=== PATIENT | female | born 1975 | race Hispanic/Latino ===

== ENCOUNTER 2020-10-18 12:54 | Emergency (ER) ==
[2020-10-18] MEDS ORDERED: Acetaminophen 500 MG TAB ONE (13:48)
== END 2020-10-18 14:00 | disposition home or self-care (01) ==
LOC: ERS 12:54
DX: U07.1 COVID-19 (principal); J12.89 Other viral pneumonia; Z79.82 Long term (current) use of aspirin
CPT/HCPCS: 71045; 93005

== ENCOUNTER 2020-10-18 23:50 | Emergency (ER) | payer SELFPAY ==
[2020-10-19] MEDS ORDERED: Ibuprofen 200 MG TAB ONE (00:33)
== END 2020-10-19 02:07 | disposition home or self-care (01) ==
LOC: ERS 23:50
DX: U07.1 COVID-19 (principal)
CPT/HCPCS: 71045

== ENCOUNTER 2021-04-02 15:11 | Outpatient (CLI) | payer OTHER | END 2021-04-02 15:12 | disposition home or self-care (01) | LOC: BICMRI 15:11 → EDSEX 15:11 → BICMRI 15:12 | PROVIDERS: ATTEND Family Medicine | DX: S83.422D Sprain of lateral collateral ligament of left knee, subsequent encounter (principal); S89.92XD Unspecified injury of left lower leg, subsequent encounter; M23.242 Derangement of anterior horn of lateral meniscus due to old tear or injury, left knee; M23.92 Unspecified internal derangement of left knee; M25.462 Effusion, left knee ==

== ENCOUNTER 2021-07-26 11:28 | Outpatient (CLI) | payer SELFPAY, OTHER ==
[2021-07-26 12:44] LABS: #Basophils 0.1 10x3/uL (0.0-0.2); #Eosinphils 0.6 10x3/uL (0.0-0.5); #Monocytes 0.7 10x3/uL (0.0-1.1); #Neutrophils 3.6 10x3/uL (1.5-8.4); %Basophils 1.1 % (0.0-2.0); %Lymphocytes 29.7 % (18.0-47.0); %Monocytes 9.2 % (0.0-10.0); %Neutrophils 51.4 % (40.0-75.0); Hemoglobin 15.8 g/dL (13.5-17.5); Mean Corpuscular HGB CONC 33.9 g/dL (32.0-36.0); Mean Corpuscular Hemoglobin 30.3 pg (27.0-33.0); Mean Corpuscular Volume 89.3 fl (81.2-95.1); Mean Platelet Volume 10.5 fl (7.4-10.4); Platelet Count 249 10x3/uL (150-450); RBC Distribution Width 13.2 % (11.5-14.5); Red Blood Cell (RBC) Count 5.22 10x6/uL (4.32-5.72)
[2021-07-27 00:08] LABS: SARS-CoV-2 PCR by NAA Not Detected (NotDetected)
== END 2021-07-26 11:29 | disposition home or self-care (01) ==
LOC: LABBT 11:28
PROVIDERS: ATTEND Orthopaedic Surgery
DX: Z01.812 Encounter for preprocedural laboratory examination (principal); S83.512A Sprain of anterior cruciate ligament of left knee, initial encounter; S83.282A Other tear of lateral meniscus, current injury, left knee, initial encounter; Z20.822 Contact with and (suspected) exposure to COVID-19
CPT/HCPCS: 85025; U0003; U0005

== ENCOUNTER 2021-07-29 07:55 | Day surgery (SDC) | payer OTHER ==
[2021-07-27 10:40] VITALS: BMI 28.5
[2021-07-29] MEDS ORDERED: Midazolam HCl 2 mg/2 ml Vial ONE (09:05)
[2021-07-29] MEDS ORDERED: Dexamethasone 4 mg/ml Vial ONE (09:12)
[2021-07-29] MEDS ORDERED: ceFAZolin 2 GM/Dextrose 50 ML IVPB ONE (10:07)
[2021-07-29] MEDS ORDERED: Bupivacaine HCl 0.5%/Epinephrine 1:200,000/PF 30 ml Vial ONE (10:17)
[2021-07-29] MEDS ORDERED: Lidocaine 1% PF 5 ML VIAL ONE (10:17)
[2021-07-29] MEDS ORDERED: PROPOFOL 200 MG/20 ML VIAL ONE (10:17)
[2021-07-29] MEDS ORDERED: Ondansetron PF 4 MG/2 ML Vial ONE (10:17)
[2021-07-29] MEDS ORDERED: Dexamethasone 20 MG/5 ML VIAL ONE ×2 (10:17)
[2021-07-29] MEDS ORDERED: Ketorolac Tromethamine 30 MG/ML VIAL ONE (10:17)
[2021-07-29] MEDS ORDERED: Fentanyl 100 MCG/2 ML VIAL ONE ×2 (12:26→12:45)
[2021-07-29] MEDS ORDERED: HYDROcodone/Acetaminophen 5/325 mg Tablet ONE (13:41)
[2021-07-29] MEDS ORDERED: Morphine 4 MG/ML VIAL ONE (13:41)
== END 2021-07-29 16:27 | disposition home or self-care (01) ==
LOC: SDC 07:55
PROVIDERS: ATTEND Orthopaedic Surgery
PROC: 0SQD4ZZ Repair Left Knee Joint, Percutaneous Endoscopic Approach (ICD-10-PCS; principal; 2021-07-29)
PROC: 3E0T3BZ Introduction of Anesthetic Agent into Peripheral Nerves and Plexi, Percutaneous Approach (ICD-10-PCS; principal; 2021-07-29)
PROC: 0MRP47Z Replacement of Left Knee Bursa and Ligament with Autologous Tissue Substitute, Percutaneous Endoscopic Approach (ICD-10-PCS; principal; 2021-07-29)
DX: S83.512A Sprain of anterior cruciate ligament of left knee, initial encounter (principal); S83.282A Other tear of lateral meniscus, current injury, left knee, initial encounter; M22.42 Chondromalacia patellae, left knee; X58.XXXA Exposure to other specified factors, initial encounter; Y99.0 Civilian activity done for income or pay
CPT/HCPCS: C1713; J0690; J1100; J1885; J2250; J2270; J2405; J2704; J3010